=== PATIENT | male | born 1970 | race Caucasian/White ===

== ENCOUNTER 2020-10-05 10:10 | Inpatient (IN) ==
[2020-10-05] MEDS ORDERED: REMDESIVIR 200 MG in NS 250 ML IV 250 ML IV NR (11:22)
[2020-10-05] MEDS ORDERED: TUSSIONEX PENNKINETIC SUSP PO PRN (11:22)
[2020-10-05] MEDS ORDERED: NS 1/2 1000 ML IV 1,000 ML IV ONE (11:35)
[2020-10-05] MEDS: NS 1/2 1000 ML IV 1,000 ML IV SCH (11:52)
[2020-10-05 12:07] LABS: BASOPHILS % (AUTO) 0.2 % (0.2-1.0); HEMATOCRIT 47.2 % (42.0-54.0); LYMPHOCYTES # (AUTO) 0.6 X10^3/uL (1.3-2.9); LYMPHOCYTES % (AUTO) 8.3 % (21.0-51.0); MEAN CORPUSCULAR HEMOGLOBIN 29.1 pg (27.0-34.0); MEAN CORPUSCULAR HGB CONC 33.8 g/dL (33.0-35.0); MEAN CORPUSCULAR VOLUME 86.1 fL (80.0-100.0); MEAN PLATELET VOLUME 9.7 fL (7.4-11.0); MONOCYTES # (AUTO) 0.8 x10^3/uL (0.3-0.8); MONOCYTES % (AUTO) 9.7 % (0.0-13.0); NEUTROPHILS # (AUTO) 6.3 x10^3/uL (2.2-4.8); NEUTROPHILS % (AUTO) 81.8 % (42.0-75.0); PLATELET COUNT 187 X10^3/uL (150.0-450.0); RED BLOOD COUNT 5.48 X10^6/uL (4.7-6.0); RED CELL DISTRIBUTION WIDTH 13.9 % (11.6-16.5); WHITE BLOOD COUNT 7.8 X10^3/uL (3.6-10.0)
[2020-10-05] MEDS ORDERED: REMDESIVIR IV ONE (12:07)
[2020-10-05] MEDS ORDERED: NS 250 ML IV 250 ML IV ONE (12:08)
[2020-10-05 12:10] LABS: ABG ALLEN TEST POS; ABG HCO3 25.5 mmol/L (22-26)
[2020-10-05] MEDS: DUONEB 0.5 MG/3 MG (3 mL) NEB SCH ×4 (12:10→21:21)
[2020-10-05] MEDS: LEVAQUIN PREMIX IV 500 MG 500 MG/100 ML BAG IV SCH (12:12)
[2020-10-05] MEDS: PROTONIX INJ 40 MG VIAL IVP SCH ×2 (12:13→20:37)
[2020-10-05] MEDS: VSL#3 PO SCH (12:13)
[2020-10-05] MEDS: ROBITUSSIN DM PO SCH ×4 (12:14→20:37)
[2020-10-05] MEDS: PULMICORT NEB TX 0.5 MG NEB SCH ×2 (12:27→21:20)
[2020-10-05 12:36] VITALS: BMI 33.9
[2020-10-05 12:38] LABS: ALANINE AMINOTRANSFERASE 151 Units/L (12-78); ALBUMIN 3.5 g/dL (3.4-5.0); ALKALINE PHOSPHATASE 95 Units/L (46-116); ASPARTATE AMINO TRANSFERASE 106 Units/L (15-37); BLOOD UREA NITROGEN 28 mg/dL (7-18); CALCIUM 9.2 mg/dL (8.5-10.1); CARBON DIOXIDE 26.6 mmol/L (21-32); CHLORIDE 101 mmol/L (98-107); CKMB % 3.1 % (<4); CREATINE KINASE 32 Units/L (39-308); CREATINE KINASE MB < 1.0 ng/mL (0-4.0); CREATININE 1.23 mg/dL (0.70-1.30); SODIUM 139 mmol/L (136-145); TOTAL PROTEIN 7.7 g/dL (6.4-8.2); TROPONIN I < 0.02 ng/mL (0-1.5); eGFR NON BLACK RACES > 60 (>60)
[2020-10-05] MEDS: CARDIZEM CD 240 MG 24-HR PO SCH (14:53)
[2020-10-05] MEDS ORDERED: ZOCOR TAB 40 MG PO SCH (15:00)
[2020-10-05] MEDS: COZAAR PO SCH (15:04)
[2020-10-05] MEDS: LEXAPRO PO SCH (15:04)
[2020-10-05] MEDS: MICRO K EXTEN CAP 10 MEQ PO SCH (15:04)
[2020-10-05] MEDS: LOPRESSOR TAB 50 MG PO SCH ×2 (15:26→20:37)
--- NOTE | 2020-10-05 15:30 | CT ---
HISTORYSOB- COVID +STUDYCTA CHEST with IV contrastCOMPARISONChest x-ray 10/05/2020TECHNIQUEMultiple axial images of the chest were obtained from the thoracic inlet to the upper abdomen after the administration of IV contrast. 100 cc Omnipaque 350 IV contrast. 3D reconstructions utilizing axial MIPS imaging was performed and reviewed. Dose reduction techniques including Automated Exposure Control (AEC) and adjustment of mA and kV were utilized.FINDINGSThere are scattered ground-glass and interstitial densities that could be due to COVID-19 pneumonia. Other linear densities and which showed densities in the lung bases are likely atelectasis. There is mild bronchiectasis in the lung bases. No pneumothorax or pleural effusion is seen.Small likely reactive lymph nodes are seen. There is cardiomegaly without pulmonary venous congestion. Thoracic aorta is normal in size without suggestion of dissection. No pulmonary embolus is seen.IMPRESSIONNo pulmonary embolus is seen.Likely changes of COVID-19 pneumonia.Cardiomegaly without evidence of pulmonary venous congestion.Electronically signed by: Lars Grider (Oct 05, 2020 15:29:08)
--- NOTE | 2020-10-05 16:19 | RAD ---
HISTORYCOVID +STUDYCHEST, 1 VIEWCOMPARISONPortable chest April 27, 2018FINDINGSThe trachea is midline. The cardiac silhouette is unremarkable . The lungs are clear without focal infiltrate or effusion. There are mild increased interstitial markings in the lung bases compared to the prior study of April 27, 2018. No definite infiltrates are seen to strongly suggest COVID-19 pneumonia at this time. The bony thorax is unremarkable.IMPRESSIONNo definite acute infiltrates at this time.Electronically signed by: DB ISSA (Oct 05, 2020 16:17:29)
[2020-10-05] MEDS ORDERED: SOLU-Medrol 40 MG VIAL ONE (20:06)
[2020-10-05] MEDS: ZOCOR TAB 40 MG PO SCH (20:37)
[2020-10-05] MEDS: SOLU-Medrol 40 MG VIAL IVP SCH (21:01)
[2020-10-06] MEDS ORDERED: NS 1/2 1000 ML IV 1,000 ML IV ONE ×2 (02:41→19:44)
[2020-10-06] MEDS: NS 1/2 1000 ML IV 1,000 ML IV SCH ×3 (02:44→20:30)
[2020-10-06] MEDS: SOLU-Medrol 40 MG VIAL IVP SCH ×3 (05:03→21:08)
[2020-10-06 05:24] LABS: ABG ALLEN TEST POS; ABG BASE EXCESS 1.3 mmol/L (-2.0-2.0); ABG HCO3 24.9 mmol/L (22-26)
[2020-10-06 05:56] LABS: BASOPHILS % (AUTO) 0 % (0.2-1.0); HEMATOCRIT 45.2 % (42.0-54.0); HEMOGLOBIN 15.2 g/dL (13.5-18.0); LYMPHOCYTES # (AUTO) 0.4 X10^3/uL (1.3-2.9); LYMPHOCYTES % (AUTO) 7.4 % (21.0-51.0); MEAN CORPUSCULAR HEMOGLOBIN 28.9 pg (27.0-34.0); MEAN CORPUSCULAR HGB CONC 33.7 g/dL (33.0-35.0); MEAN CORPUSCULAR VOLUME 85.7 fL (80.0-100.0); MEAN PLATELET VOLUME 10.2 fL (7.4-11.0); MONOCYTES # (AUTO) 0.2 x10^3/uL (0.3-0.8); MONOCYTES % (AUTO) 4.7 % (0.0-13.0); NEUTROPHILS # (AUTO) 4.6 x10^3/uL (2.2-4.8); NEUTROPHILS % (AUTO) 87.9 % (42.0-75.0); PLATELET COUNT 204 X10^3/uL (150.0-450.0); RED BLOOD COUNT 5.27 X10^6/uL (4.7-6.0); RED CELL DISTRIBUTION WIDTH 13.4 % (11.6-16.5); WHITE BLOOD COUNT 5.2 X10^3/uL (3.6-10.0)
[2020-10-06 05:57] LABS: ALANINE AMINOTRANSFERASE 119 Units/L (12-78); ALBUMIN 3.1 g/dL (3.4-5.0); ALKALINE PHOSPHATASE 95 Units/L (46-116); ASPARTATE AMINO TRANSFERASE 78 Units/L (15-37); BLOOD UREA NITROGEN 20 mg/dL (7-18); CALCIUM 9.1 mg/dL (8.5-10.1); CHLORIDE 101 mmol/L (98-107); COR CA(FOR HYPOALB) 9.8 mg/dL (8.5-10.1); COR NA(FOR HYPERGLY) 139 mmol/L (136-145); CREATININE 1.12 mg/dL (0.70-1.30); SODIUM 138 mmol/L (136-145); TOTAL PROTEIN 7.3 g/dL (6.4-8.2); eGFR NON BLACK RACES > 60 (>60)
[2020-10-06] MEDS ORDERED: LEXAPRO ONE (08:16)
[2020-10-06] MEDS: CARDIZEM CD 240 MG 24-HR PO SCH (08:19)
[2020-10-06] MEDS: COZAAR PO SCH (08:20)
[2020-10-06] MEDS: VSL#3 PO SCH (08:20)
[2020-10-06] MEDS: MICRO K EXTEN CAP 10 MEQ PO SCH (08:20)
[2020-10-06] MEDS: LOPRESSOR TAB 50 MG PO SCH ×2 (08:20→20:45)
[2020-10-06] MEDS: LEXAPRO PO SCH (08:20)
[2020-10-06] MEDS: LEVAQUIN PREMIX IV 500 MG 500 MG/100 ML BAG IV SCH (08:21)
[2020-10-06] MEDS: ROBITUSSIN DM PO SCH ×4 (08:21→20:46)
[2020-10-06] MEDS: PROTONIX INJ 40 MG VIAL IVP SCH ×2 (08:21→20:46)
[2020-10-06] MEDS: PULMICORT NEB TX 0.5 MG NEB SCH ×2 (08:55→21:45)
[2020-10-06] MEDS: DUONEB 0.5 MG/3 MG (3 mL) NEB SCH ×4 (08:55→21:45)
[2020-10-06] MEDS: REMDESIVIR 100 MG in NS 250 ML IV 250 ML IV SCH (09:24)
[2020-10-06] MEDS ORDERED: LOVENOX INJ 30 MG SYR SC SCH (10:00)
[2020-10-06] MEDS ORDERED: LOVENOX INJ 100 MG SYR SC NR (10:00)
--- NOTE | 2020-10-06 10:26 | DR.UPDATE ---
H&P Update History and Physical Update: History and Physical reviewed and patient examined. Changes noted: Yes with the following: IS A 50 YEAR OLD PATIENT OF OURS. HE PRESENTED TO THE OFFICE WITH REPORTS OF PERSISTENT COUGH, SHORTNESS OF BREATH, WEAKNESS, AND BODY ACHES. COUGH IS NON-PRODUCTIVE. HIS SYMPTOMS STARTED ON 09/26/20. HE RECENTLY TESTED POSITIVE FOR COVID-19. HE HAS BEEN TAKING A Z-PACK, IPRATROPIUM NEB TX, AND A MEDROL DOSE PACK SINCE 09/30/20. HE DENIES IMPROVEMENT IN SYMPTOMS DESPITE COMPLIANCE WITH MEDICATIONS. HIS PMH INCLUDES: ATRIAL FIBRILLATION, HYPERLIPIDEMIA, HYPERTENSION, GERD, ANXIETY, AND LITHOTRIPSY. HE WAS ADMITTED TO THE HOSPITAL FOR FURTHER EVALUATION AND TREATMENT. ON ARRIVAL TO THE HOSPITAL, VITALS WERE 98.7-86-18-96%-121/83. LABS WERE OBTAINED. ABNORMAL LAB VALUES INCLUDE THE FOLLOWING: D-DIMER 0.94, BUN 23, GLUCOSE 110, FERRITIN 588, AST 106, ALT 151, CREATINE KINASE 32, CRP 18.60. CARDIAC ENZYMES WERE WITHIN NORMAL LIMITS. BLOOD CULTURES WERE SET UP. ABG REVEALED: PH 7.470, PC02 35.0, P02 66.0, HC03 25.5, 02 SAT 94, FI02 21.0. A CHEST XRAY WAS OBTAINED AND REVEALED: No definite acute infiltrates at this time. A CHEST CTA WAS OBTAINED AND REVEALED: There are scattered ground-glass and interstitial densities that could be due to COVID-19 pneumonia. Other linear densities and which showed densities in the lung bases are likely atelectasis. There is mild bronchiectasis in the lung bases. No pneumothorax or pleural effusion is seen. Small likely reactive lymph nodes are seen. There is cardiomegaly without pulmonary venous congestion. Thoracic aorta is normal in size without suggestion of dissection. No pulmonary embolus is seen. EKG REVEALED: ATRIAL FIBRILLATION WITH HR 94. HE WAS STARTED ON 1/2NS AT 75 ML/HR, LEVAQUIN 500MG IV DAILY, REMDESIVIR 200MG IV X 1, THEN REMDESIVIR 100MG IV DAILY, DUONEBS QID, PULMICORT NEBS BID, LOVENOX 80MG SC BID, ROBITUSSIN DM 10ML PO Q4H PRN, SOLU-MEDROL 80MG IV Q8H, TUSSIONEX 5ML PO Q12H, PROTONIX 40MG IV BID, AND HIS HOME MEDICATIONS WERE RESUMED. OTHERWISE, WE WILL FOLLOW UP WITH AM LABS, CHEST XRAY, ABG, AND CONTINUE TO MONITOR. TIME SPENT ON CLINICAL ASSESSMENT, REVIEWING LABS AND IMAGING, DECISION MAKING, AND DOCUMENTATION WAS GREATER THAN 75 MINUTES. H&P Reviewed: Yes Patient was examined?: Yes
--- NOTE | 2020-10-06 11:26 | PCM.PROG ---
Progress Note - Progress Note for Day of Date of Exam: 10/06/20 - Subjective Subjective: WAS ADMITTED FOR TREATMENT OF PNEUMONIA DUE TO COVID-19, FAILED OUTPATIENT TX. TODAY, HE IS ALERT AND ORIENTED, LYING IN BED ON MORNING ROUNDS. HE CONTINUES WITH COMPLAINTS OF COUGH AND SHORTNESS OF BREATH THIS MORNING. HE DENIES SIGNIFICANT IMPROVEMENT IN SYMPTOMS SINCE ADMISSION. HE IS CURRENTLY UTILIZING OXYGEN VIA NASAL CANNULA AT 2 L/MIN. ON EXAMINATION, HEART IS REGULAR IN RATE AND RHYTHM. BILATERAL LUNGS ARE NOTED WITH SCATTERED WHEEZING THROUGHOUT. ABDOMEN IS ROUND, SOFT, AND NON-TENDER WITH NORMAL BOWEL SOUNDS IN ALL QUADRANTS. HIS VITALS THIS MORNING ARE: 98.2-100-23-91%NC-117/86. LABS WERE OBTAINED. ABNORMAL LAB VALUES INCLUDE THE FOLLOWING: BUN 20, GLUCOSE 141, FERRITIN 599, AST 78, ALT 119, CRP 29.20, ALBUMIN 3.1. BLOOD CULTURES ARE PENDING. HE IS CURRENTLY RECEIVIN/2NS AT 75 ML/HR, LEVAQUIN 500MG IV DAILY, REMDESIVIR 100MG IV DAILY, DUONEBS QID, PULMICORT NEBS BID, LOVENOX 80MG SC BID, ROBITUSSIN DM 10ML PO Q4H PRN, SOLU-MEDROL 80MG IV Q8H, TUSSIONEX 5ML PO Q12H, PROTONIX 40MG IV BID, AND HIS HOME MEDICATIONS WERE RESUMED. WE WILL CONTINUE WITH CURRENT PLAN OF CARE TODAY. OTHERWISE, WE WILL FOLLOW UP WITH AM LABS AND CONTINUE TO MONITOR. - Past Medical Family Social History Past Med/Fam/Surg Hx: No changes since H&P Allergies: Allergies Penicillins Adverse Reaction (Verified 05/03/19 09:19) - Review of Systems ROS: No change since H&P - Vital Signs and I&O's Vital Signs: Temperature 98.2 F Pulse Rate 117 Respiratory Rate 23 Blood Pressure [Left Arm] 161/98 Blood Pressure 117/86 O2 Sat by Pulse Oximetry 91 Intake and Output: Intake & Output 10/03/20 10/04/20 10/05/20 10/06/20 11:59 11:59 11:59 11:59 Intake Total 2675 / 2675 Output Total 2350 / 2350 Balance 325 / 325 - Physical Exam Oriented: Normal Eyes: Normal Ear: Normal Nose: Normal Throat: Normal Respiratory: Generalized, Wheezes Cardiovascular: Normal : Normal Auscultation: Bowel Sounds: Normal Palpation: Normal Tenderness: Normal Skin: Normal Musculoskeletal: Normal Psychiatric: Normal Mood Description: Calm Affect: Normal Speech Pattern: Clear, Appropriate - Laboratory and Diagnostics Result Diagrams: 10/06/20 04:45 10/06/20 04:45 Labs: Laboratory WBC 5.2 X10^3/uL (3.6-10.0) 10/06/20 04:45 RBC 5.27 X10^6/uL (4.7-6.0) 10/06/20 04:45 Hgb 15.2 g/dL (13.5-18.0) 10/06/20 04:45 Hct 45.2 % (42.0-54.0) 10/06/20 04:45 MCV 85.7 fL (80.0-100.0) 10/06/20 04:45 MCH 28.9 pg (27.0-34.0) 10/06/20 04:45 MCHC 33.7 g/dL (33.0-35.0) 10/06/20 04:45 RDW 13.4 % (11.6-16.5) 10/06/20 04:45 Plt Count 204 X10^3/uL (150.0-450.0) 10/06/20 04:45 MPV 10.2 fL (7.4-11.0) 10/06/20 04:45 Neut % (Auto) 87.9 % (42.0-75.0) H 10/06/20 04:45 Lymph % (Auto) 7.4 % (21.0-51.0) L 10/06/20 04:45 [place] % (Auto) 4.7 % (0.0-13.0) 10/06/20 04:45 Eos % (Auto) 0.0 % (0.9-2.9) L 10/06/20 04:45 Baso % (Auto) 0 % (0.2-1.0) L 10/06/20 04:45 Neut # (Auto) 4.6 x10^3/uL (2.2-4.8) 10/06/20 04:45 Lymph # (Auto) 0.4 X10^3/uL (1.3-2.9) L 10/06/20 04:45 [place] # (Auto) 0.2 x10^3/uL (0.3-0.8) L 10/06/20 04:45 Eos # (Auto) 0.0 x10^3/uL (0.0-0.2) 10/06/20 04:45 Baso # (Auto) 0.0 X10^3/uL (0.0-0.1) 10/06/20 04:45 Absolute Nucleated RBC 0.2 /100WBC 10/06/20 04:45 D-Dimer 0.94 ug/ml (0.0-0.57) H* 10/05/20 11:50 Sample Site Rr 10/06/20 05:00 ABG pH 7.460 (7.35-7.45) H 10/06/20 05:00 ABG pCO2 35.0 mmHg (35.0-45.0) 10/06/20 05:00 ABG pO2 61.0 mmHg (80.0-100.0) L 10/06/20 05:00 ABG HCO3 24.9 mmol/L (22-26) 10/06/20 05:00 ABG O2 Saturation 92.0 % (90-100) 10/06/20 05:00 ABG Base Excess 1.3 mmol/L (-2.0-2.0) 10/06/20 05:00 Feliciano Test Pos 10/06/20 05:00 A-a Gradient 95.0 mmHg 10/06/20 05:00 FiO2 28.0 10/06/20 05:00 Blood Gas Comments Louise well sw 10/06/20 05:00 Sodium 138 mmol/L (136-145) 10/06/20 04:45 Corrected Sodium 139 mmol/L (136-145) 10/06/20 04:45 Potassium 4.3 mmol/L (3.5-5.1) 10/06/20 04:45 Chloride 101 mmol/L (98-107) 10/06/20 04:45 Carbon Dioxide 25.0 mmol/L (21-32) 10/06/20 04:45 BUN 20 mg/dL (7-18) H 10/06/20 04:45 Creatinine 1.12 mg/dL (0.70-1.30) 10/06/20 04:45 Est GFR (MDRD) Af Amer > 60 (>60) 10/06/20 04:45 Est GFR (MDRD) Non-Af > 60 (>60) 10/06/20 04:45 Glucose 141 mg/dL (65-99) H 10/06/20 04:45 Calcium 9.1 mg/dL (8.5-10.1) 10/06/20 04:45 Corrected Calcium 9.8 mg/dL (8.5-10.1) 10/06/20 04:45 Ferritin 599 ng/mL (26-388) H 10/06/20 04:45 Total Bilirubin 0.60 mg/dL (0.2-1.0) 10/06/20 04:45 AST 78 Units/L (15-37) H 10/06/20 04:45 ALT 119 Units/L (12-78) H 10/06/20 04:45 Alkaline Phosphatase 95 Units/L (46-116) 10/06/20 04:45 Creatine Kinase 32 Units/L (39-308) L 10/05/20 11:50 CK-MB (CK-2) < 1.0 ng/mL (0-4.0) 10/05/20 11:50 CK/CKMB % Calc 3.1 % (<4) 10/05/20 11:50 Troponin I < 0.02 ng/mL (0-1.5) 10/05/20 11:50 C-Reactive Protein 29.20 mg/L (0-3.0) H 10/06/20 04:45 B-Natriuretic Peptide 36.1 pg/mL (0-79) 10/05/20 11:50 Total Protein 7.3 g/dL (6.4-8.2) 10/06/20 04:45 Albumin 3.1 g/dL (3.4-5.0) L 10/06/20 04:45 Globulin 4.2 g/dL (2.5-4.5) 10/06/20 04:45 Albumin/Globulin Ratio 0.7 Ratio (1.1-2.1) L 10/06/20 04:45 - Plan (1) Pneumonia due to 2019 novel coronavirus Status: Acute Plan: 1/2NS AT 75 ML/HR, LEVAQUIN 500MG IV DAILY, REMDESIVIR 100MG IV DAILY, DUONEBS QID, PULMICORT NEBS BID, LOVENOX 80MG SC BID, ROBITUSSIN DM 10ML PO Q4H PRN, SOLU-MEDROL 80MG IV Q8H, TUSSIONEX 5ML PO Q12H, PROTONIX 40MG IV BID, AND HIS HOME MEDICATIONS WERE RESUMED.
[2020-10-06] MEDS: LOVENOX INJ 80 MG SYR SC SCH (20:46)
[2020-10-06] MEDS: ZOCOR TAB 40 MG PO SCH (20:46)
[2020-10-07 05:36] LABS: BASOPHILS % (AUTO) 0.1 % (0.2-1.0); HEMATOCRIT 43.5 % (42.0-54.0); HEMOGLOBIN 14.8 g/dL (13.5-18.0); LYMPHOCYTES # (AUTO) 0.6 X10^3/uL (1.3-2.9); LYMPHOCYTES % (AUTO) 5.8 % (21.0-51.0); MEAN CORPUSCULAR HEMOGLOBIN 28.9 pg (27.0-34.0); MEAN CORPUSCULAR VOLUME 84.8 fL (80.0-100.0); MEAN PLATELET VOLUME 9.8 fL (7.4-11.0); MONOCYTES # (AUTO) 0.8 x10^3/uL (0.3-0.8); MONOCYTES % (AUTO) 8.1 % (0.0-13.0); NEUTROPHILS # (AUTO) 8.4 x10^3/uL (2.2-4.8); PLATELET COUNT 226 X10^3/uL (150.0-450.0); RED BLOOD COUNT 5.13 X10^6/uL (4.7-6.0); RED CELL DISTRIBUTION WIDTH 13.6 % (11.6-16.5); WHITE BLOOD COUNT 9.8 X10^3/uL (3.6-10.0)
[2020-10-07] MEDS: SOLU-Medrol 40 MG VIAL IVP SCH ×3 (05:56→21:16)
[2020-10-07] MEDS: NS 1/2 1000 ML IV 1,000 ML IV SCH ×2 (05:59→08:29)
--- NOTE | 2020-10-07 06:24 | RAD ---
HISTORYFollow-up COVID-19STUDYChest AP [id number]/23/2020 plain film and CTA chestFINDINGSThe heart is enlarged. No congestive heart failure is noted. The lungs are well inflated and free of alveolar and ground-glass infiltrates. There are some interstitial lung changes bilaterally in the lower lobes stable when compared to the prior examination. The ground-glass infiltrates depicted on the recent CTA chest are not yet visible on plain film. No pleural effusions are identified. Bony thorax is unremarkable.IMPRESSIONMild cardiomegaly without congestive heart failureLower lobe interstitial lung changes, stable. Ground-glass infiltrates visualized on recent CTA chest are not yet visible on plain film.Electronically signed by: MAEGAN LOWERY (Oct 07, 2020 06:22:45)
[2020-10-07 06:57] LABS: ALANINE AMINOTRANSFERASE 91 Units/L (12-78); ALBUMIN 2.8 g/dL (3.4-5.0); ALKALINE PHOSPHATASE 83 Units/L (46-116); ASPARTATE AMINO TRANSFERASE 54 Units/L (15-37); BLOOD UREA NITROGEN 20 mg/dL (7-18); CALCIUM 8.8 mg/dL (8.5-10.1); CARBON DIOXIDE 26.5 mmol/L (21-32); CHLORIDE 104 mmol/L (98-107); COR CA(FOR HYPOALB) 9.8 mg/dL (8.5-10.1); COR NA(FOR HYPERGLY) 140 mmol/L (136-145); CREATININE 1.05 mg/dL (0.70-1.30); SODIUM 139 mmol/L (136-145); TOTAL PROTEIN 6.5 g/dL (6.4-8.2); eGFR NON BLACK RACES > 60 (>60)
[2020-10-07] MEDS ORDERED: LEXAPRO ONE (08:08)
[2020-10-07] MEDS ORDERED: NS 1/2 1000 ML IV 1,000 ML IV ONE (08:09)
[2020-10-07] MEDS: CARDIZEM CD 240 MG 24-HR PO SCH (08:27)
[2020-10-07] MEDS: VSL#3 PO SCH (08:29)
[2020-10-07] MEDS: ROBITUSSIN DM PO SCH ×4 (08:29→21:16)
[2020-10-07] MEDS: MICRO K EXTEN CAP 10 MEQ PO SCH (08:30)
[2020-10-07] MEDS: REMDESIVIR 100 MG in NS 250 ML IV 250 ML IV SCH (08:30)
[2020-10-07] MEDS: PROTONIX INJ 40 MG VIAL IVP SCH ×2 (08:30→21:16)
[2020-10-07] MEDS: LEVAQUIN PREMIX IV 500 MG 500 MG/100 ML BAG IV SCH (08:31)
[2020-10-07] MEDS: LOVENOX INJ 80 MG SYR SC SCH ×2 (08:31→21:16)
[2020-10-07] MEDS: LOPRESSOR TAB 50 MG PO SCH ×2 (08:31→21:16)
[2020-10-07] MEDS: LEXAPRO PO SCH (08:32)
[2020-10-07] MEDS: COZAAR PO SCH (08:32)
[2020-10-07] MEDS: PULMICORT NEB TX 0.5 MG NEB SCH ×2 (09:30→20:35)
[2020-10-07] MEDS: DUONEB 0.5 MG/3 MG (3 mL) NEB SCH ×4 (09:30→20:35)
[2020-10-07] MEDS: ZOCOR TAB 40 MG PO SCH (21:16)
[2020-10-08] MEDS ORDERED: NS 1/2 1000 ML IV 1,000 ML IV ONE ×2 (01:56→21:26)
[2020-10-08] MEDS: NS 1/2 1000 ML IV 1,000 ML IV SCH ×3 (01:58→10:18)
[2020-10-08 05:32] LABS: ABG ALLEN TEST POS; ABG BASE EXCESS 1.6 mmol/L (-2.0-2.0); ABG HCO3 24.4 mmol/L (22-26)
[2020-10-08] MEDS: SOLU-Medrol 40 MG VIAL IVP SCH ×3 (05:37→22:00)
[2020-10-08 05:40] LABS: BASOPHILS % (AUTO) 0.1 % (0.2-1.0); HEMATOCRIT 41.3 % (42.0-54.0); LYMPHOCYTES # (AUTO) 0.5 X10^3/uL (1.3-2.9); LYMPHOCYTES % (AUTO) 4.3 % (21.0-51.0); MEAN CORPUSCULAR HEMOGLOBIN 28.8 pg (27.0-34.0); MEAN CORPUSCULAR HGB CONC 33.9 g/dL (33.0-35.0); MEAN CORPUSCULAR VOLUME 84.9 fL (80.0-100.0); MEAN PLATELET VOLUME 9.9 fL (7.4-11.0); MONOCYTES # (AUTO) 0.6 x10^3/uL (0.3-0.8); MONOCYTES % (AUTO) 5.1 % (0.0-13.0); NEUTROPHILS # (AUTO) 11.1 x10^3/uL (2.2-4.8); NEUTROPHILS % (AUTO) 90.5 % (42.0-75.0); PLATELET COUNT 235 X10^3/uL (150.0-450.0); RED BLOOD COUNT 4.86 X10^6/uL (4.7-6.0); RED CELL DISTRIBUTION WIDTH 13.9 % (11.6-16.5); WHITE BLOOD COUNT 12.3 X10^3/uL (3.6-10.0)
[2020-10-08 05:57] LABS: ALANINE AMINOTRANSFERASE 81 Units/L (12-78); ALBUMIN 2.7 g/dL (3.4-5.0); ALKALINE PHOSPHATASE 75 Units/L (46-116); ASPARTATE AMINO TRANSFERASE 45 Units/L (15-37); BLOOD UREA NITROGEN 22 mg/dL (7-18); CALCIUM 8.6 mg/dL (8.5-10.1); CARBON DIOXIDE 25.5 mmol/L (21-32); CHLORIDE 104 mmol/L (98-107); COR CA(FOR HYPOALB) 9.6 mg/dL (8.5-10.1); COR NA(FOR HYPERGLY) 140 mmol/L (136-145); CREATININE 0.97 mg/dL (0.70-1.30); SODIUM 139 mmol/L (136-145); TOTAL PROTEIN 5.9 g/dL (6.4-8.2); eGFR NON BLACK RACES > 60 (>60)
[2020-10-08 06:02] LABS: BAND NEUTROPHILS % 4 % (0-10); PLATELET MORPHOLOGY COMMENT NORMAL (NORMAL)
--- NOTE | 2020-10-08 06:59 | RAD ---
HISTORYCOVID, SOBSTUDYCHEST, 1 [id number]/25/2020FINDINGSThe trachea is midline. The cardiac silhouette is enlarged with a tortuous thoracic aorta . Scattered interstitial lung changes throughout the right and left chest are observed. The bony thorax is unremarkable.IMPRESSIONPersistent but stable interstitial lung changes of the right and left catherine thorax.Electronically signed by: CHRISTINE LANGLEY (Oct 08, 2020 06:57:48)
[2020-10-08] MEDS ORDERED: LEXAPRO ONE (08:50)
[2020-10-08] MEDS: CARDIZEM CD 240 MG 24-HR PO SCH (08:55)
[2020-10-08] MEDS: ROBITUSSIN DM PO SCH ×4 (08:55→20:34)
[2020-10-08] MEDS: LEXAPRO PO SCH (08:55)
[2020-10-08] MEDS: MICRO K EXTEN CAP 10 MEQ PO SCH (08:55)
[2020-10-08] MEDS: LOPRESSOR TAB 50 MG PO SCH ×2 (08:56→20:33)
[2020-10-08] MEDS: REMDESIVIR 100 MG in NS 250 ML IV 250 ML IV SCH (08:56)
[2020-10-08] MEDS: COZAAR PO SCH (08:56)
[2020-10-08] MEDS: LOVENOX INJ 80 MG SYR SC SCH ×2 (08:56→20:33)
[2020-10-08] MEDS: VSL#3 PO SCH (08:57)
[2020-10-08] MEDS: PROTONIX INJ 40 MG VIAL IVP SCH ×2 (08:57→20:33)
[2020-10-08] MEDS: DUONEB 0.5 MG/3 MG (3 mL) NEB SCH (09:50)
[2020-10-08] MEDS: MUCOMYST (RESPIRATORY USE ONLY) NEB SCH ×3 (09:50→17:25)
[2020-10-08] MEDS: PULMICORT NEB TX 0.5 MG NEB SCH ×2 (09:50→21:33)
[2020-10-08] MEDS: LEVAQUIN PREMIX IV 500 MG 500 MG/100 ML BAG IV SCH (10:18)
[2020-10-08] MEDS: XOPENEX 1.25 MG/3 ML NEBULE NEB SCH ×2 (12:30→17:25)
[2020-10-08] MEDS: ZOCOR TAB 40 MG PO SCH (20:35)
[2020-10-09] MEDS: XOPENEX 1.25 MG/3 ML NEBULE NEB SCH ×3 (00:36→12:10)
[2020-10-09] MEDS: MUCOMYST (RESPIRATORY USE ONLY) NEB SCH ×3 (00:36→12:10)
[2020-10-09] MEDS: NS 1/2 1000 ML IV 1,000 ML IV SCH ×2 (01:00→13:36)
[2020-10-09 05:32] LABS: BASOPHILS % (AUTO) 0 % (0.2-1.0); HEMATOCRIT 39.5 % (42.0-54.0); HEMOGLOBIN 13.3 g/dL (13.5-18.0); LYMPHOCYTES # (AUTO) 0.5 X10^3/uL (1.3-2.9); LYMPHOCYTES % (AUTO) 4.6 % (21.0-51.0); MEAN CORPUSCULAR HEMOGLOBIN 28.8 pg (27.0-34.0); MEAN CORPUSCULAR HGB CONC 33.7 g/dL (33.0-35.0); MEAN CORPUSCULAR VOLUME 85.5 fL (80.0-100.0); MEAN PLATELET VOLUME 9.6 fL (7.4-11.0); MONOCYTES # (AUTO) 0.6 x10^3/uL (0.3-0.8); MONOCYTES % (AUTO) 5.9 % (0.0-13.0); NEUTROPHILS # (AUTO) 9.4 x10^3/uL (2.2-4.8); NEUTROPHILS % (AUTO) 89.5 % (42.0-75.0); PLATELET COUNT 223 X10^3/uL (150.0-450.0); RED BLOOD COUNT 4.62 X10^6/uL (4.7-6.0); RED CELL DISTRIBUTION WIDTH 13.6 % (11.6-16.5); WHITE BLOOD COUNT 10.5 X10^3/uL (3.6-10.0)
[2020-10-09 05:51] LABS: ALANINE AMINOTRANSFERASE 131 Units/L (12-78); ALBUMIN 2.5 g/dL (3.4-5.0); ALKALINE PHOSPHATASE 69 Units/L (46-116); ASPARTATE AMINO TRANSFERASE 67 Units/L (15-37); BLOOD UREA NITROGEN 25 mg/dL (7-18); CALCIUM 8.1 mg/dL (8.5-10.1); CARBON DIOXIDE 26.2 mmol/L (21-32); CHLORIDE 106 mmol/L (98-107); COR CA(FOR HYPOALB) 9.3 mg/dL (8.5-10.1); COR NA(FOR HYPERGLY) 141 mmol/L (136-145); CREATININE 0.92 mg/dL (0.70-1.30); SODIUM 140 mmol/L (136-145); TOTAL PROTEIN 5.4 g/dL (6.4-8.2); eGFR NON BLACK RACES > 60 (>60)
[2020-10-09] MEDS: SOLU-Medrol 40 MG VIAL IVP SCH (06:36)
[2020-10-09 06:59] LABS: ABG ALLEN TEST POS; ABG BASE EXCESS 1.5 mmol/L (-2.0-2.0); ABG HCO3 24.6 mmol/L (22-26)
[2020-10-09] MEDS ORDERED: LEXAPRO ONE (08:09)
--- NOTE | 2020-10-09 08:10 | RAD ---
HISTORYCOVIDSTUDYCHEST, 1 VIEWCOMPARISONChest radiograph dated October 08.FINDINGSThe trachea is midline. The cardiac silhouette is enlarged but stable. Background changes of COPD persist with persistent, unchanged, midlung zone and lower lobe ground-glass and interstitial disease/densities remaining. No convincing evidence for ARDS is yet seen. The bony thorax is unremarkable.IMPRESSIONCardiomegaly with changes of COPD and unchanged findings of ground-glass disease and interstitial disease in the midlung zones and lower lobes, consistent with a COVID-19 pneumonia/infection. Continued follow-up is recommended to ensure complete resolution. No convincing evidence for ARDS is yet seen.Electronically signed by: ELIZA PEARSON III (Oct 09, 2020 08:09:02)
[2020-10-09] MEDS: CARDIZEM CD 240 MG 24-HR PO SCH (08:45)
[2020-10-09] MEDS: COZAAR PO SCH (08:45)
[2020-10-09] MEDS: MICRO K EXTEN CAP 10 MEQ PO SCH (08:46)
[2020-10-09] MEDS: LOPRESSOR TAB 50 MG PO SCH (08:46)
[2020-10-09] MEDS: LOVENOX INJ 80 MG SYR SC SCH (08:46)
[2020-10-09] MEDS: LEVAQUIN PREMIX IV 500 MG 500 MG/100 ML BAG IV SCH (08:46)
[2020-10-09] MEDS: LEXAPRO PO SCH (08:46)
[2020-10-09] MEDS: VSL#3 PO SCH (08:47)
[2020-10-09] MEDS: REMDESIVIR 100 MG in NS 250 ML IV 250 ML IV SCH (08:47)
[2020-10-09] MEDS: ROBITUSSIN DM PO SCH ×2 (08:47→13:36)
[2020-10-09] MEDS: PROTONIX INJ 40 MG VIAL IVP SCH (08:47)
[2020-10-09] MEDS: PULMICORT NEB TX 0.5 MG NEB SCH (09:10)
[2020-10-09 12:38] VITALS: BP 111/65
[2020-10-10] MEDS ORDERED: PREDNISONE TAB 5 MG PO SCH (09:00)
--- NOTE | 2020-10-12 22:12 | PCM.PROG ---
Progress Note - Progress Note for Day of Date of Exam: 10/07/20 - Subjective Subjective: IS BEING TREATED FOR PNEUMONIA DUE TO COVID-19, FAILED OUTPATIENT TX AND HYPOXIA. TODAY, HE IS ALERT AND ORIENTED, LYING IN BED ON MORNING ROUNDS. HE CONTINUES WITH COMPLAINTS OF COUGH AND SHORTNESS OF BREATH THIS MORNING. HE DENIES SIGNIFICANT IMPROVEMENT IN SYMPTOMS SINCE ADMISSION. HE IS CURRENTLY UTILIZING OXYGEN VIA NASAL CANNULA AT 2 L/MIN. HIS OXYGEN SATURATIONS HAVE BEEN 89-92% ON 2 LPM ON NASAL CANNULA. ON EXAMINATION, HEART IS REGULAR IN RATE AND RHYTHM. BILATERAL LUNGS ARE NOTED WITH SCATTERED WHEEZING THROUGHOUT. ABDOMEN IS ROUND, SOFT, AND NON-TENDER WITH NORMAL BOWEL SOUNDS IN ALL QUADRANTS. HIS VITALS THIS MORNING ARE: 98.6-84-25-91%NC-106/56. LABS WERE OBTAINED. ABNORMAL LAB VALUES INCLUDE THE FOLLOWING: BUN 20, GLUCOSE 148, FERRITIN 639, AST 54, ALT 91, CRP 12.10, ALBUMIN 2.8. BLOOD CULTURES ARE PENDING. A CHEST XRAY WAS OBTAINED THIS MORNING AND REVEALED: Mild cardiomegaly without congestive heart failure. Lower lobe interstitial lung changes, stable. Ground-glass infiltrates visualized on recent CTA chest are not yet visible on plain film. HE IS CURRENTLY RECEIVIN/2NS AT 75 ML/HR, LEVAQUIN 500MG IV DAILY, REMDESIVIR 100MG IV DAILY, DUONEBS QID, PULMICORT NEBS BID, LOVENOX 80MG SC BID, ROBITUSSIN DM 10ML PO Q4H PRN, SOLU-MEDROL 80MG IV Q8H, TUSSIONEX 5ML PO Q12H, PROTONIX 40MG IV BID, AND HIS HOME MEDICATIONS WERE RESUMED. WE WILL CONTINUE WITH CURRENT PLAN OF CARE TODAY. OTHERWISE, WE WILL FOLLOW UP WITH AM LABS AND CONTINUE TO MONITOR. - Past Medical Family Social History Past Med/Fam/Surg Hx: No changes since H&P Allergies: Allergies Penicillins Adverse Reaction (Verified 05/03/19 09:19) - Review of Systems ROS: No change since H&P - Vital Signs and I&O's Vital Signs: Temperature 98.0 F Pulse Rate 75 Respiratory Rate 25 Blood Pressure [Left Arm] 161/98 Blood Pressure 111/65 O2 Sat by Pulse Oximetry 92 - Physical Exam Oriented: Normal Eyes: Normal Ear: Normal Nose: Normal Throat: Normal Respiratory: Generalized, Wheezes Cardiovascular: Normal : Normal Auscultation: Bowel Sounds: Normal Palpation: Normal Tenderness: Normal Skin: Normal Musculoskeletal: Normal Psychiatric: Normal Mood Description: Calm Affect: Normal Speech Pattern: Clear, Appropriate - Laboratory and Diagnostics Result Diagrams: 10/09/20 04:45 10/09/20 04:45 Labs: 10/05/20 11:50 Blood Blood Culture - Final 10/05/20 11:40 Blood Blood Culture - Final Laboratory WBC 10.5 X10^3/uL (3.6-10.0) H 10/09/20 04:45 RBC 4.62 X10^6/uL (4.7-6.0) L 10/09/20 04:45 Hgb 13.3 g/dL (13.5-18.0) L 10/09/20 04:45 Hct 39.5 % (42.0-54.0) L 10/09/20 04:45 MCV 85.5 fL (80.0-100.0) 10/09/20 04:45 MCH 28.8 pg (27.0-34.0) 10/09/20 04:45 MCHC 33.7 g/dL (33.0-35.0) 10/09/20 04:45 RDW 13.6 % (11.6-16.5) 10/09/20 04:45 Plt Count 223 X10^3/uL (150.0-450.0) 10/09/20 04:45 Plt Count Comment Adequate (ADEQUATE) 10/08/20 04:16 MPV 9.6 fL (7.4-11.0) 10/09/20 04:45 Neut % (Auto) 89.5 % (42.0-75.0) H 10/09/20 04:45 Lymph % (Auto) 4.6 % (21.0-51.0) L 10/09/20 04:45 [place] % (Auto) 5.9 % (0.0-13.0) 10/09/20 04:45 Eos % (Auto) 0.0 % (0.9-2.9) L 10/09/20 04:45 Baso % (Auto) 0 % (0.2-1.0) L 10/09/20 04:45 Neut # (Auto) 9.4 x10^3/uL (2.2-4.8) H 10/09/20 04:45 Lymph # (Auto) 0.5 X10^3/uL (1.3-2.9) L 10/09/20 04:45 [place] # (Auto) 0.6 x10^3/uL (0.3-0.8) 10/09/20 04:45 Eos # (Auto) 0.0 x10^3/uL (0.0-0.2) 10/09/20 04:45 Baso # (Auto) 0.0 X10^3/uL (0.0-0.1) 10/09/20 04:45 Absolute Nucleated RBC 0.1 /100WBC 10/09/20 04:45 Total Counted 100 10/08/20 04:16 Neutrophils % (Manual) 89 % (39-76) H 10/08/20 04:16 Band Neutrophils % 4 % (0-10) 10/08/20 04:16 Lymphocytes % (Manual) 5 % (13-43) L 10/08/20 04:16 Monocytes % (Manual) 2 % (4-9) L 10/08/20 04:16 Plt Morphology Comment Normal (NORMAL) 10/08/20 04:16 RBC Morphology Normal (NORMAL) 10/08/20 04:16 D-Dimer 0.94 ug/ml (0.0-0.57) H* 10/05/20 11:50 Sample Site Lr 10/09/20 06:51 ABG pH 7.480 (7.35-7.45) H 10/09/20 06:51 ABG pCO2 33.0 mmHg (35.0-45.0) L 10/09/20 06:51 ABG pO2 61.0 mmHg (80.0-100.0) L 10/09/20 06:51 ABG HCO3 24.6 mmol/L (22-26) 10/09/20 06:51 ABG O2 Saturation 93.0 % (90-100) 10/09/20 06:51 ABG Base Excess 1.5 mmol/L (-2.0-2.0) 10/09/20 06:51 Feliciano Test Pos 10/09/20 06:51 A-a Gradient 97.0 mmHg 10/09/20 06:51 FiO2 28.0 10/09/20 06:51 Blood Gas Comments Pt radha well .[facility] 10/09/20 06:51 Sodium 140 mmol/L (136-145) 10/09/20 04:45 Corrected Sodium 141 mmol/L (136-145) 10/09/20 04:45 Potassium 3.8 mmol/L (3.5-5.1) 10/09/20 04:45 Chloride 106 mmol/L (98-107) 10/09/20 04:45 Carbon Dioxide 26.2 mmol/L (21-32) 10/09/20 04:45 BUN 25 mg/dL (7-18) H 10/09/20 04:45 Creatinine 0.92 mg/dL (0.70-1.30) 10/09/20 04:45 Est GFR (MDRD) Af Amer > 60 (>60) 10/09/20 04:45 Est GFR (MDRD) Non-Af > 60 (>60) 10/09/20 04:45 Glucose 147 mg/dL (65-99) H 10/09/20 04:45 Calcium 8.1 mg/dL (8.5-10.1) L 10/09/20 04:45 Corrected Calcium 9.3 mg/dL (8.5-10.1) 10/09/20 04:45 Ferritin 616 ng/mL (26-388) H 10/09/20 04:45 Total Bilirubin 0.30 mg/dL (0.2-1.0) 10/09/20 04:45 AST 67 Units/L (15-37) H 10/09/20 04:45 ALT 131 Units/L (12-78) H 10/09/20 04:45 Alkaline Phosphatase 69 Units/L (46-116) 10/09/20 04:45 Creatine Kinase 32 Units/L (39-308) L 10/05/20 11:50 CK-MB (CK-2) < 1.0 ng/mL (0-4.0) 10/05/20 11:50 CK/CKMB % Calc 3.1 % (<4) 10/05/20 11:50 Troponin I < 0.02 ng/mL (0-1.5) 10/05/20 11:50 C-Reactive Protein 0.70 mg/L (0-3.0) 10/09/20 04:45 B-Natriuretic Peptide 36.1 pg/mL (0-79) 10/05/20 11:50 Total Protein 5.4 g/dL (6.4-8.2) L 10/09/20 04:45 Albumin 2.5 g/dL (3.4-5.0) L 10/09/20 04:45 Globulin 2.9 g/dL (2.5-4.5) 10/09/20 04:45 Albumin/Globulin Ratio 0.9 Ratio (1.1-2.1) L 10/09/20 04:45 - Plan (1) Pneumonia due to 2019 novel coronavirus Status: Acute Plan: 1/2NS AT 75 ML/HR, LEVAQUIN 500MG IV DAILY, REMDESIVIR 100MG IV DAILY, DUONEBS QID, PULMICORT NEBS BID, LOVENOX 80MG SC BID, ROBITUSSIN DM 10ML PO Q4H PRN, SOLU-MEDROL 80MG IV Q8H, TUSSIONEX 5ML PO Q12H, PROTONIX 40MG IV BID, AND HIS HOME MEDICATIONS WERE RESUMED.
--- NOTE | 2020-10-12 23:46 | PCM.PROG ---
Progress Note - Progress Note for Day of Date of Exam: 10/08/20 - Subjective Subjective: IS BEING TREATED FOR PNEUMONIA DUE TO COVID-19, FAILED OUTPATIENT TX AND HYPOXIA. TODAY, HE IS ALERT AND ORIENTED, LYING IN BED ON MORNING ROUNDS. HE CONTINUES WITH COMPLAINTS OF COUGH AND SHORTNESS OF BREATH THIS MORNING. HE ADMITS TO SLIGHT IMPROVEMENT IN SYMPTOMS TODAY. HE IS CURRENTLY UTILIZING OXYGEN VIA NASAL CANNULA AT 2 L/MIN. HIS OXYGEN SATURATIONS CONTINUE TO BE 89-92% ON 2 LPM ON NASAL CANNULA. ON EXAMINATION, HEART IS REGULAR IN RATE AND RHYTHM. BILATERAL LUNGS ARE NOTED WITH SCATTERED WHEEZING THROUGHOUT. ABDOMEN IS ROUND, SOFT, AND NON-TENDER WITH NORMAL BOWEL SOUNDS IN ALL QUADRANTS. HIS VITALS THIS MORNING ARE: 98.8-100-22-92%NC-138/86. LABS WERE OBTAINED. ABNORMAL LAB VALUES INCLUDE THE FOLLOWING: WBC 12.3, HCT 41.3, BUN 22, GLUCOSE 135, FERRITIN 611, AST 45, ALT 81, CRP 3.30, TOTAL PROTEIN 5.9, ALBUMIN 2.7. AN ABG WAS OBTAINED AND REVEALED: PH 7.490, PC02 32.0, P02 62.0, HC03 24.4, 02 SAT 93.0, BASE EXCESS 1.6, FI02 28.0. BLOOD CULTURES ARE PENDING. A CHEST XRAY WAS OBTAINED THIS MORNING AND REVEALED: Persistent but stable interstitial lung changes of the right and left catherine thorax. HE IS CURRENTLY RECEIVIN/2NS AT 75 ML/HR, LEVAQUIN 500MG IV DAILY, REMDESIVIR 100MG IV DAILY, DUONEBS QID, PULMICORT NEBS BID, LOVENOX 80MG SC BID, ROBITUSSIN DM 10ML PO Q4H PRN, SOLU- MEDROL 80MG IV Q8H, TUSSIONEX 5ML PO Q12H, PROTONIX 40MG IV BID, AND HIS HOME MEDICATIONS WERE RESUMED. WE WILL CONTINUE WITH CURRENT PLAN OF CARE TODAY AND ADD MUCOMYST TO NEB TX. OTHERWISE, WE WILL FOLLOW UP WITH AM LABS AND CONTINUE TO MONITOR. - Past Medical Family Social History Past Med/Fam/Surg Hx: No changes since H&P Allergies: Allergies Penicillins Adverse Reaction (Verified 05/03/19 09:19) - Review of Systems ROS: No change since H&P - Vital Signs and I&O's Vital Signs: Temperature 98.0 F Pulse Rate 75 Respiratory Rate 25 Blood Pressure [Left Arm] 161/98 Blood Pressure 111/65 O2 Sat by Pulse Oximetry 92 - Physical Exam Oriented: Normal Eyes: Normal Ear: Normal Nose: Normal Throat: Normal Respiratory: Generalized, Wheezes Cardiovascular: Normal : Normal Auscultation: Bowel Sounds: Normal Tenderness: Normal Skin: Normal Musculoskeletal: Normal Psychiatric: Normal Mood Description: Calm Affect: Normal Speech Pattern: Clear, Appropriate - Laboratory and Diagnostics Result Diagrams: 10/09/20 04:45 10/09/20 04:45 Labs: 10/05/20 11:50 Blood Blood Culture - Final 10/05/20 11:40 Blood Blood Culture - Final Laboratory WBC 10.5 X10^3/uL (3.6-10.0) H 10/09/20 04:45 RBC 4.62 X10^6/uL (4.7-6.0) L 10/09/20 04:45 Hgb 13.3 g/dL (13.5-18.0) L 10/09/20 04:45 Hct 39.5 % (42.0-54.0) L 10/09/20 04:45 MCV 85.5 fL (80.0-100.0) 10/09/20 04:45 MCH 28.8 pg (27.0-34.0) 10/09/20 04:45 MCHC 33.7 g/dL (33.0-35.0) 10/09/20 04:45 RDW 13.6 % (11.6-16.5) 10/09/20 04:45 Plt Count 223 X10^3/uL (150.0-450.0) 10/09/20 04:45 Plt Count Comment Adequate (ADEQUATE) 10/08/20 04:16 MPV 9.6 fL (7.4-11.0) 10/09/20 04:45 Neut % (Auto) 89.5 % (42.0-75.0) H 10/09/20 04:45 Lymph % (Auto) 4.6 % (21.0-51.0) L 10/09/20 04:45 [place] % (Auto) 5.9 % (0.0-13.0) 10/09/20 04:45 Eos % (Auto) 0.0 % (0.9-2.9) L 10/09/20 04:45 Baso % (Auto) 0 % (0.2-1.0) L 10/09/20 04:45 Neut # (Auto) 9.4 x10^3/uL (2.2-4.8) H 10/09/20 04:45 Lymph # (Auto) 0.5 X10^3/uL (1.3-2.9) L 10/09/20 04:45 Bandera # (Auto) 0.6 x10^3/uL (0.3-0.8) 10/09/20 04:45 Eos # (Auto) 0.0 x10^3/uL (0.0-0.2) 10/09/20 04:45 Baso # (Auto) 0.0 X10^3/uL (0.0-0.1) 10/09/20 04:45 Absolute Nucleated RBC 0.1 /100WBC 10/09/20 04:45 Total Counted 100 10/08/20 04:16 Neutrophils % (Manual) 89 % (39-76) H 10/08/20 04:16 Band Neutrophils % 4 % (0-10) 10/08/20 04:16 Lymphocytes % (Manual) 5 % (13-43) L 10/08/20 04:16 Monocytes % (Manual) 2 % (4-9) L 10/08/20 04:16 Plt Morphology Comment Normal (NORMAL) 10/08/20 04:16 RBC Morphology Normal (NORMAL) 10/08/20 04:16 D-Dimer 0.94 ug/ml (0.0-0.57) H* 10/05/20 11:50 Sample Site Lr 10/09/20 06:51 ABG pH 7.480 (7.35-7.45) H 10/09/20 06:51 ABG pCO2 33.0 mmHg (35.0-45.0) L 10/09/20 06:51 ABG pO2 61.0 mmHg (80.0-100.0) L 10/09/20 06:51 ABG HCO3 24.6 mmol/L (22-26) 10/09/20 06:51 ABG O2 Saturation 93.0 % (90-100) 10/09/20 06:51 ABG Base Excess 1.5 mmol/L (-2.0-2.0) 10/09/20 06:51 Feliciano Test Pos 10/09/20 06:51 A-a Gradient 97.0 mmHg 10/09/20 06:51 FiO2 28.0 10/09/20 06:51 Blood Gas Comments Pt radha well .cdn 10/09/20 06:51 Sodium 140 mmol/L (136-145) 10/09/20 04:45 Corrected Sodium 141 mmol/L (136-145) 10/09/20 04:45 Potassium 3.8 mmol/L (3.5-5.1) 10/09/20 04:45 Chloride 106 mmol/L (98-107) 10/09/20 04:45 Carbon Dioxide 26.2 mmol/L (21-32) 10/09/20 04:45 BUN 25 mg/dL (7-18) H 10/09/20 04:45 Creatinine 0.92 mg/dL (0.70-1.30) 10/09/20 04:45 Est GFR (MDRD) Af Amer > 60 (>60) 10/09/20 04:45 Est GFR (MDRD) Non-Af > 60 (>60) 10/09/20 04:45 Glucose 147 mg/dL (65-99) H 10/09/20 04:45 Calcium 8.1 mg/dL (8.5-10.1) L 10/09/20 04:45 Corrected Calcium 9.3 mg/dL (8.5-10.1) 10/09/20 04:45 Ferritin 616 ng/mL (26-388) H 10/09/20 04:45 Total Bilirubin 0.30 mg/dL (0.2-1.0) 10/09/20 04:45 AST 67 Units/L (15-37) H 10/09/20 04:45 ALT 131 Units/L (12-78) H 10/09/20 04:45 Alkaline Phosphatase 69 Units/L (46-116) 10/09/20 04:45 Creatine Kinase 32 Units/L (39-308) L 10/05/20 11:50 CK-MB (CK-2) < 1.0 ng/mL (0-4.0) 10/05/20 11:50 CK/CKMB % Calc 3.1 % (<4) 10/05/20 11:50 Troponin I < 0.02 ng/mL (0-1.5) 10/05/20 11:50 C-Reactive Protein 0.70 mg/L (0-3.0) 10/09/20 04:45 B-Natriuretic Peptide 36.1 pg/mL (0-79) 10/05/20 11:50 Total Protein 5.4 g/dL (6.4-8.2) L 10/09/20 04:45 Albumin 2.5 g/dL (3.4-5.0) L 10/09/20 04:45 Globulin 2.9 g/dL (2.5-4.5) 10/09/20 04:45 Albumin/Globulin Ratio 0.9 Ratio (1.1-2.1) L 10/09/20 04:45 - Plan (1) Pneumonia due to 2019 novel coronavirus Status: Acute Plan: 1/2NS AT 75 ML/HR, LEVAQUIN 500MG IV DAILY, REMDESIVIR 100MG IV DAILY, DUONEBS QID, PULMICORT NEBS BID, LOVENOX 80MG SC BID, ROBITUSSIN DM 10ML PO Q4H PRN, SOLU-MEDROL 80MG IV Q8H, TUSSIONEX 5ML PO Q12H, PROTONIX 40MG IV BID, AND HIS HOME MEDICATIONS WERE RESUMED.
== END 2020-10-09 14:14 | disposition home or self-care (01) | DRG 177 ==
LOC: ICU → OBSVTOIN 11:08
PROVIDERS: ADMIT Internal Medicine; ATTEND Internal Medicine
DX: F41.9 Anxiety disorder, unspecified; U07.1 COVID-19; I10 Essential (primary) hypertension; R06.02 Shortness of breath; I48.20 Chronic atrial fibrillation, unspecified; J12.89 Other viral pneumonia